=== PATIENT | female | born 1960 | race African-American/Black ===

== ENCOUNTER 2017-06-14 15:33 | Outpatient (CLI) | payer OTHER ==
--- NOTE | 2017-06-15 09:34 | Mammography Report ---
BILATERAL DIGITAL SCREENING MAMMOGRAM with CAD : 06/14/17 15:33:00 CLINICAL: Routine screening. COMPARISON:06/03/16 FINDINGS: The breasts are heterogeneously dense, which may obscure small masses.Scattered bilateral benign calcifications. No mass, architectural distortion or suspicious calcifications. IMPRESSION: No mammographic evidence of malignancy. BI-RADS CATEGORY: 2 -- Benign RECOMMENDATION: Routine mammographic screening in one year. COMMENT: Patient follow-up letters are generated by our [employer] application.
== END 2017-06-14 15:34 | disposition home or self-care (01) ==
LOC: SPVWC 15:33
PROVIDERS: ATTEND Obstetrics & Gynecology
DX: Z12.31 Encounter for screening mammogram for malignant neoplasm of breast (principal)
CPT/HCPCS: 77067; G0202

== ENCOUNTER 2018-08-24 15:39 | Outpatient (CLI) | payer OTHER ==
--- NOTE | 2018-08-24 16:08 | Mammography Report ---
Bilateral mammogram: Compared to 06/14/17. CAD study utilized. Findings: Bilateral heterogeneous breast parenchyma. No distinct mass or microcalcification. Benign scattered calcifications bilaterally. Focal circumscribed 7 mm asymmetry mid posterior left breast seen only on MLO view. There is focal asymmetry posterior left breast seen on CC view. Impression: Focal asymmetry left breast. Recommend spot compression and sonographic examination. BI-RADS CATEGORY: 0 = Needs additional imaging evaluation ACR BI-RADS MAMMOGRAPHIC CODES: 0 = Needs additional imaging evaluation; 1 = Negative; 2 = Benign; 3 = Probably benign; 4 = Suspicious; 5 = Malignant; 6 = Known biopsy-proven malignancy COMMENT: 1. Dense breast tissue, i.e., adenosis, fibrocystic changes, etc., may obscure an underlying neoplasm. 2. Approximately 10% of cancers are not detected with mammography. 3. A negative mammography report should not delay biopsy if a clinically suspicious mass is present. COMMENT: Patient follow-up letters are generated in [employer].
== END 2018-08-24 15:40 | disposition home or self-care (01) ==
LOC: SPVWC 15:39
PROVIDERS: ATTEND Obstetrics & Gynecology
DX: Z12.31 Encounter for screening mammogram for malignant neoplasm of breast (principal)
CPT/HCPCS: 77067

== ENCOUNTER 2019-02-18 15:13 | Outpatient (CLI) | payer OTHER ==
--- NOTE | 2019-02-18 16:20 | Mammography Report ---
LEFT DIGITAL DIAGNOSTIC MAMMOGRAM INDICATION: Recall for asymmetries. TECHNIQUE: Digital left mammographic imaging was performed. COMPARISON: 04/23/2019 FINDINGS: Breast Density: The breasts are heterogeneously dense, which may obscure small masses. Additional left mammographic views were performed and are negative. Scattered benign calcifications. IMPRESSION: No mammographic evidence of malignancy. Recommend routine mammographic screening. BI-RADS Category 2: Benign. Recommend routine screening mammography in one year A "normal" or negative report should not discourage follow up or biopsy of a clinically significant f inding. A written summary of these findings will be mailed to the patient. The patient will be entered into a mammography reporting system which will generate a reminder letter for the patient's next appointmen t at the appropriate interval. FURTHER INFORMATION: According to the [employer], yearly mammograms are recommend ed starting at age 40 and continuing as long as a woman is in good health. Breast MRI is recommended for women with an approximately 20-25% or greater lifetime risk of breast cancer, including women wi th a strong family history of breast or ovarian cancer and women who have been treated for Hodgkin's disease. Signer Name: Adi Randall MD Signed: 02/18/2019 4:15 PM Workstation Name: [id number]
== END 2019-02-18 15:14 | disposition home or self-care (01) ==
LOC: SPVWC 15:13
PROVIDERS: ATTEND Obstetrics & Gynecology
DX: R92.8 Other abnormal and inconclusive findings on diagnostic imaging of breast (principal)